=== PATIENT | female | born 1950 | race African-American/Black ===

== ENCOUNTER → 2018-09-01 | Outpatient (CLI) | payer OTHER, BC | LOC: RAD 11:59 | DX: M51.36 Other intervertebral disc degeneration, lumbar region (principal); M96.1 Postlaminectomy syndrome, not elsewhere classified ==

== ENCOUNTER → 2019-03-10 | Outpatient (CLI) | payer OTHER, BC ==
[~2019-03-10] MED LIST: ATARAX; BENAZEPRIL HCL20 MG PO; CATAPRES-TTS 10.1 M1 PO; CLONIDINE0.1; CRESTOR10 MG PO; CYMBALTA30 MG PO; CYMBALTA60 MG PO; FOLIC ACID1 MG PO; KLOR-CON 1010 MEQ PO; LANTUS SUBQ; LASIX 40 MG TAB40 M1 PO; LOTRIMIN30 GM TP; LYRICA 75 MG CA75 MG PO; NORFLEX100 MG PO; NOVOLOG100 UNIT/1 SQ; OPANA ER40 MG PO; PERCOCET 10-321 EACH; TEGRETOL XR100 MG PO; WELLBUTRIN SR150 MG PO; ZONEGRAN 25 MG25 M1 PO
== END ==
LOC: RAD 11:33
DX: M16.11 Unilateral primary osteoarthritis, right hip (principal); M47.816 Spondylosis without myelopathy or radiculopathy, lumbar region